=== PATIENT | female | born 1995 | race Caucasian/White ===

== ENCOUNTER 2022-10-12 13:22 | Emergency (ER) | payer OTHER ==
[~2022-10-12] VITALS: Ht 172.7 cm; Wt 95.7 kg
[2022-10-12 16:24] LABS: BASO % 0.5 % (0.0-1.0); EOS # 0.1 10^3/uL (0.0-0.5); EOS % 0.8 % (0.0-3.0); LYMPH # 1.9 10^3/uL (1.5-5.0); LYMPH % 23.1 % (24.0-44.0); MEAN CORPUSCULAR HEMOGLOBIN 30.2 pg (27.0-33.0); MEAN CORPUSCULAR HGB CONC 34.1 g/dl (32.0-36.5); MEAN CORPUSCULAR VOLUME 88.4 fl (80.0-96.0); MONO # 0.4 10^3/uL (0.0-0.8); MONO % 4.6 % (2.0-8.0); NEUTROPHILS # 5.9 10^3/uL (1.5-8.5); NEUTROPHILS % 70.8 % (36.0-66.0); PLATELET COUNT, AUTOMATED 228 10^3/uL (150-450); RED BLOOD COUNT 4.64 10^6/uL (4.00-5.40); WHITE BLOOD COUNT 8.3 10^3/uL (4.0-10.0)
[2022-10-12 17:03] LABS: BLOOD UREA NITROGEN 11 MG/DL (9-23); CALCIUM LEVEL 8.6 MG/DL (8.5-10.1); CARBON DIOXIDE LEVEL 24 MMOL/L (20-31); CHLORIDE LEVEL 106 MMOL/L (98-107); CREATININE FOR GFR 0.65 MG/DL (0.55-1.30); GLOMERULAR FILTRATION RATE > 60.0 (>60); GLUCOSE, FASTING 86 MG/DL (60-100); HCG, SERUM QUANTITATIVE 14.4 MIU/ML (<4.2); POTASSIUM SERUM 4.6 MMOL/L (3.5-5.1); SODIUM LEVEL 138 MMOL/L (136-145)
[2022-10-12 17:18] VITALS: BP 119/79
== END 2022-10-12 18:01 | disposition home or self-care (01) ==
LOC: M ED 13:22
DX: N93.9 Abnormal uterine and vaginal bleeding, unspecified (principal); R10.2 Pelvic and perineal pain; R89.1 Abnormal level of hormones in specimens from other organs, systems and tissues

== ENCOUNTER → 2022-10-16 | Outpatient (CLI) | payer OTHER | LOC: M LAB 09:38 | PROVIDERS: ATTEND Emergency Medicine | DX: N93.9 Abnormal uterine and vaginal bleeding, unspecified (principal) ==

== ENCOUNTER → 2025-03-13 | Outpatient (CLI) | payer OTHER | LOC: M WHC 11:29 | PROVIDERS: ATTEND Advanced Practice Midwife | DX: Z34.82 Encounter for supervision of other normal pregnancy, second trimester (principal); Z3A.27 27 weeks gestation of pregnancy ==

== ENCOUNTER → 2025-03-13 | Outpatient (CLI) | payer OTHER ==
[2025-03-13 15:15] LABS: GLUCOSE CHALLENGE TEST 1 HOUR 101 MG/DL (LESS THAN 140)
[2025-03-13 15:16] LABS: PLATELET COUNT, AUTOMATED 176 10^3/uL (150-450)
[2025-03-13 15:44] LABS: HIV 1&2 SCREEN NEGATIVE (NEGATIVE)
[2025-03-13 15:52] LABS: HEPATITIS C VIRUS ABY INDEX < 0.02 INDEX (<0.8)
[2025-03-13 16:06] LABS: Trichomonas vaginalis (AMP) NOT DETECTED (NEGATIVE)
[2025-03-13 16:29] LABS: GC DNA AMPLIFICATION NEGATIVE (NEGATIVE)
== END ==
LOC: M PLALAB 11:30
PROVIDERS: ATTEND Advanced Practice Midwife
DX: Z34.82 Encounter for supervision of other normal pregnancy, second trimester (principal); Z3A.27 27 weeks gestation of pregnancy

== ENCOUNTER → 2025-05-15 | Outpatient (REF) | payer OTHER | LOC: M SFHCWAGY 13:01 | PROVIDERS: ATTEND Nurse Practitioner Family | DX: Z34.03 Encounter for supervision of normal first pregnancy, third trimester (principal); Z3A.36 36 weeks gestation of pregnancy ==

== ENCOUNTER 2025-06-04 07:13 | Inpatient (IN) | payer OTHER ==
[2025-06-04] VITALS (8 sets, daily range): BP systolic 117–135; BP diastolic 61–80; TEMP 96.3; O2SAT 97–99
[~2025-06-04] VITALS: Ht 172.7 cm; Wt 113.2 kg
[~2025-06-04 07:13] MED LIST: MULTTAB20 PO
[2025-06-04] MEDS ORDERED: TUMS500C PO (09:05)
[2025-06-04] MEDS ORDERED: HOME MED LIST COMPLETE! XX SCH (09:05)
[2025-06-04] MEDS ORDERED: CARBOPROST TROMETHAMINE 250 MCG/ML AMP IM PRN (09:10)
[2025-06-04] MEDS ORDERED: LIDOCAINE 1% MDV 20 ML VIAL INFIL PRN (09:10)
[2025-06-04] MEDS ORDERED: OXYTOCIN DRIP 30 UNITS in IV 1 EA IV PRN (09:10)
[2025-06-04] MEDS ORDERED: TRANEXAMIC ACID INJection 1,000 MG in NS 100 ML IV PRN (09:10)
[2025-06-04] MEDS ORDERED: METHYLERGONOVINE MALEATE 0.2 MG/ML 1 ML VIAL IM PRN (09:10)
[2025-06-04] MEDS ORDERED: ACETAMINOPHEN 1000MG/100ML IV BAG As Ordered ONE (09:43)
[2025-06-04] MEDS ORDERED: ONDANSETRON 4MG/2ML VIAL As Ordered ONE (09:44)
[2025-06-04] MEDS ORDERED: OXYTOCIN 30UNITS IN 0.9% NaCl 500ML IV BAG IV ONE (09:44)
[2025-06-04] MEDS ORDERED: dexAMETHasone 4 MG/ML 1 ML VIAL As Ordered ONE (09:46)
[2025-06-04] MEDS ORDERED: MORPHINE PRES-FREE INJ 10 MG/10 ML VIAL As Ordered ONE (09:47)
[2025-06-04] MEDS: LR 1,000 ML IV SCH ×2 (10:03→12:25)
[2025-06-04] MEDS: ceFAZolin SODIUM 2 GM in DEXTROSE 5% (D5W) ADV/MINI-BAG 50 ML IV ONE (10:17)
[2025-06-04] MEDS: BICITRA 30 ML SOLN UDC PO ONE (10:17)
[2025-06-04 10:20] LABS: PLATELET COUNT, AUTOMATED 156 10^3/uL (150-450)
[2025-06-04 11:22] LABS: HIV 1&2 SCREEN NEGATIVE (NEGATIVE)
[2025-06-04 11:31] LABS: HEPATITIS C VIRUS ABY INDEX < 0.02 INDEX (<0.8)
[2025-06-04] MEDS ORDERED: KETOROLAC 30 MG/ML 1 ML VIAL As Ordered ONE (11:37)
[2025-06-04] MEDS ORDERED: ANUSOL HC CREAM 30 GM TOP PRN (11:50)
[2025-06-04] MEDS ORDERED: CALCIUM CARBONATE 500 MG CHEW U/D PO PRN (11:50)
[2025-06-04] MEDS ORDERED: ONDANSETRON 4MG/2ML VIAL IV PRN ×2 (11:50→12:55)
[2025-06-04] MEDS ORDERED: MORPHINE 4 MG/ML 1 ML VIAL IV PRN (11:50)
[2025-06-04] MEDS ORDERED: ACETAMINOPHEN 500 MG TAB PO PRN (11:50)
[2025-06-04] MEDS ORDERED: SIMETHICONE 80MG CHEW TAB PO PRN (11:50)
[2025-06-04] MEDS ORDERED: PERCOCET 5MG/325MG TAB PO PRN ×2 (11:50)
[2025-06-04] MEDS: OXYTOCIN DRIP 30 UNITS in IV 1 EA IV SCH (12:21)
[2025-06-04] MEDS ORDERED: PHENYLephrine 500MCG 5ML (100MCG/ML) SYRINGE As Ordered ONE (12:23)
[2025-06-04] MEDS ORDERED: IBUP600T42 PO (12:50)
[2025-06-04] MEDS ORDERED: OXYC1TAB23 PO (12:50)
[2025-06-04] MEDS ORDERED: MM S100C PO (12:50)
[2025-06-04] MEDS ORDERED: diphenhydrAMINE 50 MG/ML VIAL IV PRN (12:55)
[2025-06-04] MEDS ORDERED: HYDROMORPHONE HCL 0.5 MG/0.5 ML SYRINGE IV PRN (12:55)
[2025-06-04] MEDS ORDERED: MEPERIDINE 25 MG/ML 1 ML VIAL IV PRN (12:55)
[2025-06-04] MEDS ORDERED: NALOXONE INJ 0.4 MG/1 ML VIAL IV PRN ×2 (12:55)
[2025-06-04] MEDS ORDERED: **NOTE PATIENT COMMENT** MISC XX SCH (12:55)
[2025-06-04] MEDS: FERROUS SULFATE 325 MG TAB PO SCH (15:22)
[2025-06-04] MEDS: PRENATAL VITAMINS CHEWABLE TABLET PO SCH (15:23)
[2025-06-04] MEDS: SLF 3 ML SYR IV SCH (15:23)
[2025-06-04] MEDS: KETOROLAC 30 MG/ML 1 ML VIAL IV SCH (17:16)
[2025-06-04] MEDS: DOCUSATE SODIUM 100 MG CAPSULE PO SCH (21:42)
[2025-06-05 02:03] VITALS: BP 115/57; O2SAT 98
[2025-06-05 06:06] VITALS: BP 100/65; O2SAT 98
[2025-06-05 10:00] VITALS: BP 119/57; O2SAT 96
[2025-06-05 10:41] LABS: PLATELET COUNT, AUTOMATED 157 10^3/uL (150-450)
[2025-06-05] MEDS: IBUPROFEN 800 MG TAB PO SCH (14:45)
[2025-06-05 14:52] VITALS: BP 113/88; O2SAT 97
[2025-06-05 18:38] VITALS: BP 131/59; O2SAT 98
[2025-06-05 21:37] VITALS: BP 117/58; O2SAT 96
[2025-06-06 02:00] VITALS: BP 113/61; O2SAT 97
[2025-06-06] MEDS: RHOGAM 300MCG (1500IU) INJ IM SCH (05:53)
[2025-06-06] MEDS: MEASLES,MUMPS,RUBELLA VACCINE INJ (MMR-II) SC.IMMUN ONE (05:53)
[2025-06-06 06:33] VITALS: BP 112/58; O2SAT 98
== END 2025-06-06 13:30 | disposition home or self-care (01) | DRG 773 ==
LOC: UNDOADMIN 07:13 → M LDI 07:13 → M OBS 13:55
PROVIDERS: ADMIT Obstetrics & Gynecology; ATTEND Student in an Organized Health Care Education/Training Program
PROC: 10D00Z1 Extraction of Products of Conception, Low, Open Approach (ICD-10-PCS; principal; 2025-06-04 09:30)
DX: O34.211 Maternal care for low transverse scar from previous cesarean delivery (principal); Z37.0 Single live birth; Z3A.39 39 weeks gestation of pregnancy